=== PATIENT | male | born 1950 | race Caucasian/White ===

== ENCOUNTER 2021-02-28 09:01 | Emergency (ER) | payer OTHER, MEDICARE ==
[~2021-02-28] VITALS: Ht 185.4 cm; Wt 112.5 kg
[2021-02-28 09:17] VITALS: BP 185/98
[2021-02-28 10:02] LABS: ABSOLUTE EOSINOPHILS 0.1 thou/uL (0.0-0.7); ABSOLUTE LYMPHOCYTES 0.9 thou/uL (0.8-5.3); ABSOLUTE MONOCYTES 0.5 thou/uL (0.0-1.2); ABSOLUTE NEUTROPHILS 5.2 thou/uL (1.6-8.1); BASOPHILS 0.6 %; EOSINOPHILS 1.5 %; HEMATOCRIT 43.3 % (42.0-52.0); HEMOGLOBIN 14.8 gm/dL (14.0-18.0); LYMPHOCYTES 13.2 %; MCH 31.1 pg (26.0-34.0); MCHC 34.1 g/dL (28.0-37.0); MCV 91.1 fL (80.0-100.0); MPV 7.6 fl. (7.2-11.1); NUCLEATED RBCS 0 /100WBC; PLATELET COUNT* 283 thou/uL (150-400); POLYS 76.7 %; RBC 4.76 mil/uL (4.50-6.00); RDW-CV 13.3 % (10.5-14.5); WBC 6.8 thou/uL (4.0-11.0)
[2021-02-28 10:17] LABS: CREATININE 0.8 mg/dL (0.6-1.3); POTASSIUM 4.1 mmol/L (3.5-5.1)
[2021-02-28 10:21] LABS: ALBUMIN 3.9 g/dL (3.4-5.0); MAGNESIUM 2.2 mg/dL (1.8-2.4); TOTAL BILIRUBIN 0.4 mg/dL (<0.1-1.0); TOTAL PROTEIN 6.9 g/dL (6.4-8.2)
[2021-02-28 10:30] LABS: URINE BILIRUBIN NEGATIVE (Negative); URINE BLOOD TRACE (Negative); URINE CLARITY CLEAR; URINE COLOR YELLOW; URINE GLUCOSE-RANDOM NEGATIVE (Negative); URINE KETONES NEGATIVE (Negative); URINE LEUKOCYTES-REFLEX NEGATIVE (Negative); URINE NITRITE-REFLEX NEGATIVE (Negative); URINE PROTEIN NEGATIVE (Negative); URINE UROBILINOGEN 0.2 E.U./dl (0.2-1.0)
--- NOTE | 2021-02-28 14:20 | EKG ---
[place] [address] ELECTROCARDIOGRAM REPORT Name: IGNACIO ROSALES Room: [facility]#: [id number] Admission: 02/28/21 Attend Phys: Discharge: Date of : 54 Date of Service: 02/28/21933 Report #: [id number] THIS REPORT FOR: //name// [facility] ED Test Date: 2021-02-28 Test Time: 09:34:40 Pat Name: IGNACIO ROSALES Department: Room: [facility] Gender: Improvement Lead: : 1950 Requested By: Keny Rodgers Order Number: [id number] MD: Mustapha Steen Measurements Intervals [place] Rate: 71 P: 66 LA: 142 QRS: 38 QRSD: 109 T: 46 QT: 389 QTc: 423 Interpretive Statements Sinus rhythm No previous ECG available for comparison Electronically Signed On 02-28-2021 14:19:58 CDT by Mustapha Steen [email or web address] <ELECTRONICALLY SIGNED> By: Mustapha Steen MD, [facility] 02/28/21 1419 0934 Mustapha Steen MD, FACC /EPI
[2021-02-28 17:07] VITALS: BP 166/78
== END 2021-02-28 17:10 | disposition admitted as inpatient to this hospital (09) ==
LOC: M.ERS 09:01 → M.TBA-ER 10:58 → M.ERS 10:58
PROVIDERS: Emergency Medicine Emergency Medical Services
DX: R53.1 Weakness (principal); Z20.822 Contact with and (suspected) exposure to COVID-19; R91.1 Solitary pulmonary nodule; R20.0 Anesthesia of skin; R35.0 Frequency of micturition; M54.6 Pain in thoracic spine